=== PATIENT | male | born 1955 | race Caucasian/White ===

== ENCOUNTER 2017-02-07 19:38 | Emergency (ER) | payer MEDICARE, BC ==
--- NOTE | ~2017-02-07 | CR229 ---
[facility]. [facility] A Service of [facility] & [facility] RADIOLOGY TEXT RESULTS PATIENT: SHITAL RICHARDSON LOCATION: SED : 53 UNIT #: [id number] AGE: [address]: BRANDY CADET SEX: M ORDER DR: [id number] [place] [id number] E MR#: [id number] Acc #: [id number] NAME: SHITAL RICHARDSON : 1955 SEX: M STUDY DATE/TIME: 02/07/2017 19:28 UNIT: SED ROOM: STUDY DESCRIPTION: CR Shoulder Min 2 View Lt Attending Physician: Brandy Cadet Ordering Physician: Physician Non-Staff Primary Care Physician: Olman Jackson M.D. MEDICAL IMAGING REPORT This report is preliminary unless electronic signature is present. EXAM Left shoulder 3 views HISTORY Fell 4-5 feet today. Complains of shoulder pain. FINDINGS 3 views of the left shoulder demonstrate no fracture or dislocation. There is cystic change and sclerosis along the greater tuberosity which may represent enthesopathic degenerative change. Postoperative change is seen in the cervical spine with fusion plate. Visualized left ribs and thorax unremarkable. IMPRESSION No acute findings. Dictated by... Jon Torres M.D. THIS IS AN ELECTRONICALLY VERIFIED REPORT Jon Torres M.D. at 02/08/2017 8:43 PM SAYDA/hilary TD: 02/08/2017 10:05 JOB #: [id number] MEDICAL IMAGING REPORT
[~2017-02-07 19:38] MED LIST: B/P MED PO; BACTRIM DS TABL1 TA2 PO; CYMBALTA PO; FLOMAX0.4 M1 PO; HYDROCODON-ACE1 EAC4 PO; HYDROCODONE-A1 UDTA2; IBUPROFEN800 MG PO; LOTREL 10-20 MG1 CAP; METFORMIN PO; METOPROLOL TAR100 MG; WELLBUTRIN SR150 MG PO; ZYRTEC10 M1 PO
== END 2017-02-07 20:11 | disposition home or self-care (01) ==
LOC: SED 19:38
DX: S40.012A Contusion of left shoulder, initial encounter (principal); F32.9 Major depressive disorder, single episode, unspecified; W07.XXXA Fall from chair, initial encounter; Y92.009 Unspecified place in unspecified non-institutional (private) residence as the place of occurrence of the external cause
CPT/HCPCS: 29105; 73030; 99283

== ENCOUNTER 2017-07-21 14:38 | Emergency (ER) | payer MEDICARE, BC ==
[~2017-07-21] VITALS: Ht 172.7 cm; Wt 81.6 kg
[2017-07-21] MEDS ORDERED: METFORMIN HCL500 M4 PO (15:23)
[2017-07-21] MEDS ORDERED: IBUPROFEN800 MG PO (15:23)
[2017-07-21] MEDS ORDERED: LOPRESSOR PO (15:23)
[2017-07-21] MEDS ORDERED: AMLODIPINE-BEN1 EAC3 PO (15:24)
[2017-07-21] MEDS ORDERED: BUPROPION XL300 M1 PO (15:24)
[2017-07-21] MEDS ORDERED: BUSPIRONE HCL30 MG PO (15:24)
[2017-07-21] MEDS ORDERED: LORTAB 10-3251 EACH PO (15:25)
[2017-07-21] MEDS ORDERED: FLOMAX0.4 M1 PO (15:25)
[2017-07-21] MEDS ORDERED: CYMBALTA30 M1 PO (15:26)
[2017-07-21 16:45] LABS: BASOPHIL% 0.6 % (0-2.5); EOSINOPHIL# 0.4 X10e3 (0-0.7); EOSINOPHIL% 5.5 % (0.0-7.0); HEMATOCRIT 42.4 % (38.0-50.0); HEMOGLOBIN 14.7 gm/dL (13.0-16.0); LYMPHOCYTE# 1.9 X10e3 (1.0-3.5); MEAN CELL VOLUME 88.1 FL (83-96); MEAN CORPUSCULAR HEMOGLOBIN 30.6 PG (28-34); MEAN CORPUSCULAR HGB CONC 34.7 g/dL (30-36); MEAN PLATELET VOLUME 7.2 FL (6.5-11.5); MONOCYTE# 0.8 X10e3 (0-1.0); MONOCYTE% 10.2 % (3.0-12.0); NEUTROPHIL# 4.8 X10e3 (1.5-7.1); NEUTROPHIL% 59.7 % (40-75); PLATELET COUNT 210 X10e3 (140-420); RED BLOOD COUNT 4.81 X10e (3.90-5.60); RED CELL DISTRIBUTION WIDTH 13.9 % (11.0-15.5)
[2017-07-21 16:51] LABS: DIFF IND NO
[2017-07-21 17:03] LABS: BUN/CREATININE RATIO 27.14; CALCIUM SERUM 9.2 mg/dL (8.4-10.2); CREATININE SERUM 0.7 mg/dL (0.6-1.4); GLOM FILT RATE Estimated 100.5 mL/min (>60); POTASSIUM 3.9 mmol/L (3.5-5.1)
[2017-07-21 17:45] LABS: URINE SOURCE CLEAN CATCH
[2017-07-21 17:50] LABS: URINE APPEARANCE CLEAR; URINE BILIRUBIN NEG (NEG); URINE BLOOD NEG (NEG); URINE COLOR YELLOW; URINE GLUCOSE NEG (NORM); URINE KETONE NEG (NEG); URINE LEUKOCYTE ESTERASE NEG (NEG); URINE NITRATE NEG (NEG); URINE PROTEIN NEG (NEG); URINE SPECIFIC GRAVITY >=1.030 (1.003-1.035); URINE UROBILINOGEN 0.2 MG/DL (NORM)
[2017-07-21 17:56] LABS: MICRO INDICATED? NO
== END 2017-07-21 18:09 | disposition home or self-care (01) ==
LOC: SED 14:38
PROVIDERS: Emergency Medicine
DX: R10.31 Right lower quadrant pain (principal); Z79.899 Other long term (current) drug therapy; Z88.5 Allergy status to narcotic agent
CPT/HCPCS: 36415; 80048; 81003; 85025; 96372; 99283; J1885

== ENCOUNTER → 2017-07-27 | Outpatient (CLI) | payer MEDICARE, BC ==
[~2017-07-27] MED LIST changes: +AMLODIPINE-BEN1 EAC3 PO; +BUPROPION XL300 M1 PO; +BUSPIRONE HCL30 MG PO; +CYMBALTA30 M1 PO; +LOPRESSOR PO; +LORTAB 10-3251 EACH PO; +METFORMIN HCL500 M4 PO
--- NOTE | ~2017-07-27 | CT3 ---
[facility] A Service [facility] & [facility] RADIOLOGY TEXT RESULTS PATIENT: SHITAL RICHARDSON [facility] UNIT #: [id number] AGE: [address]: Brando Garcia MD SEX: M ORDER DR: [id number] [place] [id number] [facility] [place], [place] [address] [id number] O MR#: [id number] Acc #: [id number] NAME: SHITAL RICHARDSON. : 1955 SEX: M STUDY DATE/TIME: 07/27/2017 16:03 UNIT: [facility] ROOM: STUDY DESCRIPTION: CT Abd and Pelv WWo Cont Attending Physician: Brando Garcia M.D. Referring Physician: Brando Garcia M.D. Ordering Physician: Brando Garcia M.D. Primary Care Physician: Olman Jackson M.D. MEDICAL IMAGING REPORT This report is preliminary unless electronic signature is present EXAM CT of the abdomen and pelvis without and with contrast INDICATION Renal cell carcinoma diagnosed 5 years ago. Patient reports some right groin pain over the past 2 years which has been worsening over the past 2 months. TECHNIQUE Axial precontrast imaging was obtained through the kidneys followed by arterial phase imaging of the kidneys, 90-second delayed phase imaging through the abdomen and pelvis. 3-minute delayed-phase imaging through the kidneys. All CT scans at this facility use dose modulation, iterative reconstructin, and/or weight based dosing when appropriate to reduce radiation dose to as low as reasonably achievable. FINDINGS Images through the lung bases demonstrate calcified granuloma within the left lower lobe. The patient is again noted to have diffuse hepatic steatosis. The patient has coronary artery calcifications and extensive dystrophic calcifications of the mitral valve annulus. Changes of partial nephrectomy are seen within the right kidney with no convincing evidence of recurrent or residual disease. 2 tiny low-attenuation lesions are again seen within the inferior pole of the left kidney probably not significantly changed when compared to the prior exam from 2013 favored to represent cysts. No stones are identified. Prostate gland contains some dystrophic calcifications. Urinary bladder appears normal. [facility] A Service of [facility] & [facility] RADIOLOGY TEXT RESULTS PATIENT: SHITAL RICHARDSON LOCATION: [facility] : 53 UNIT #: [id number] AGE: [address]: Brando Garcia MD SEX: M ORDER DR: The patient does have diffuse hepatic steatosis. Gallbladder is within normal limits as is the stomach. Proximal small bowel and spleen, left adrenal gland is bulky in appearance. It is unchanged when compared to July 2014. Pancreas is mildly atrophic. I do not see any free fluid or adenopathy within the abdomen. GI tract appears normal as is the urinary bladder. Changes of prior hernia repair with mesh are seen within the lower abdominal wall. I do not see any free fluid or adenopathy within the pelvis. IMPRESSION 1. Changes of right partial nephrectomy with no convincing evidence of recurrent or residual disease. No suspicious masses are identified within either kidney. Patient does have 2 tiny low-attenuation lesions within the inferior pole of the left kidney which are probably stable when compared to July 2014 and are favored to represent benign lesions such as cysts. No new lesions are seen. 2. Diffuse hepatic steatosis. 3. Please see the body of the report for any other additional incidental findings. STAT * RESULT Dictated by... Maggi Banuelos M.D. THIS IS AN ELECTRONICALLY VERIFIED REPORT Maggi Banuelos M.D. at 08/01/2017 8:08 AM SUSHIL/ольга TD: 07/31/2017 15:30 JOB #: [id number] MEDICAL IMAGING REPORT Page 1 of 1 COPY
== END | disposition home or self-care (01) ==
LOC: CCAT 13:20
DX: Z08 Encounter for follow-up examination after completed treatment for malignant neoplasm (principal); K76.0 Fatty (change of) liver, not elsewhere classified; Z85.528 Personal history of other malignant neoplasm of kidney; Z90.5 Acquired absence of kidney
CPT/HCPCS: 74178; Q9967